=== PATIENT | male | born 1985 | race Caucasian/White ===

== ENCOUNTER 2018-03-04 02:06 | Emergency (ER) | payer OTHER ==
[2018-03-04 02:12] VITALS: BP 145/80
[2018-03-04] MEDS ORDERED: OXYCODONE-ACETAMINOPHEN 5-325 MG TABLET PO ONE (02:44)
--- NOTE | 2018-03-04 02:51 | RADIOLOGY REPORT (SQ) ---
Right thumb three view on 03/04/2018 at 2:31 AM CLINICAL INDICATION: Slammed hand in car door, pain COMPARISON: None FINDINGS: There are no fractures. Visualized joints are well aligned. No bony abnormality is noted. IMPRESSION: No acute bony abnormality.
--- NOTE | 2018-03-04 03:22 | ER Document Report ---
ED General - General Chief Complaint: Hand Injury Stated Complaint: THUMB INJURY Time Seen by Provider: 03/04/18 02:16 Information source: Patient Notes: Patient is a 32-year-old male who presents to the emergency department after smashing his finger in his truck door at 2150 tonight. He is visiting his family from [place]. His pain is 5 out of 5 and he feels it is a throbbing pain in his right first finger. He also does have a hematoma under his nail bed. Denies any medical history. TRAVEL OUTSIDE OF THE [place] IN LAST 30 DAYS: No Past Medical History - General Information source: Patient - Social History Smoking Status: Unknown if Ever Smoked Drug Abuse: None Family History: Reviewed & Not Pertinent Patient has suicidal ideation: No Patient has homicidal ideation: No Renal/ Medical History: Denies: Hx Peritoneal Dialysis Review of Systems - Review of Systems Notes: REVIEW OF SYSTEMS: CONSTITUTIONAL : Denies recent illness. Denies recent unintentional weight loss. Denies fever, chills, or sweats. EENT: Denies eye, ear, throat, or mouth pain, discharge, or symptoms. Denies nasal or sinus congestion. CARDIOVASCULAR: Denies chest pain. RESPIRATORY: Denies shortness of breath, cough, congestion, difficulty breathing , or wheezing. GASTROINTESTINAL: Denies nausea, vomiting, and diarrhea. Denies abdominal pain. Denies constipation. GENITOURINARY: Denies difficulty urinating, burning, blood in urine, urgency or frequency. MUSCULOSKELETAL: See HPI SKIN: Denies rash, itchiness, or lesions HEMATOLOGIC : Denies easy bruising or bleeding. LYMPHATIC: Denies swollen, painful, enlarged glands. NEUROLOGICAL: Denies no numbness or tingling denies weakness. Denies headache. Denies altered mental status. Denies alteration in speech. PSYCHIATRIC: Denies stress, anxiety, alteration in sleep patterns, or depression. All other systems reviewed and negative. Physical Exam - Vital signs Vitals: Temp Pulse Resp BP Pulse Ox 98.1 F 64 16 145/80 H 100 03/04/18 02:10 03/04/18 02:10 03/04/18 02:10 03/04/18 02:10 03/04/18 02:10 - Notes Notes: PHYSICAL EXAMINATION: GENERAL: Appears well, healthy, well-nourished, no acute distress. HEAD: Normocephalic, atraumatic. EYES: PERRL, conjunctiva normal, all extraocular movements intact, sclera nonicteric ENT: Moist mucous membranes. NECK: Supple, no noticeable swelling, redness, rash. Normal range of motion. LUNGS: Equal breath sounds bilaterally and clear to auscultation. No wheezes rales or rhonchi. CARDIOVASCULAR: S1-S2, regular rate, regular rhythm. Radial pulses 2+, normal. ABDOMEN: Normoactive bowel sounds. Soft, nontender, no guarding, no rebound tenderness, and no masses palpated. EXTREMITIES: Normal strength and range of motion, no pitting or edema. No cyanosis. NEUROLOGICAL: Moves all extremities upon command. Strength 5/5 in all extremities. PSYCH: Normal mood, normal affect. SKIN: Subungual hematoma to first right thumb. Warm, dry. No rash, lesions, ulcerations noted. Normal skin turgor. Course - Re-evaluation Re-evalutation: 03/04/18 03:00 Patient's x-rays do not show an acute fracture. He does have a subungual hematoma under his right thumb nailbed. This is the most likely cause of his pain. A nail trephination tool was used to drain the hematoma and the patient had immediate relief. The patient does not have pain at the anatomical snuffbox area. I do not suspect any tendon abnormalities based on patient's physical exam. - Vital Signs Vital signs: Temp Pulse Resp BP Pulse Ox 98.1 F 64 16 145/80 H 100 03/04/18 02:10 03/04/18 02:10 03/04/18 02:10 03/04/18 02:10 03/04/18 02:10 Procedures - Additional Procedures Nail trephination Additional Procedures: Other Discharge - Discharge Clinical Impression: Subungual contusion of fingernail Qualifiers: Encounter type: initial encounter Qualified Code(s): S60.10XA - Contusion of unspecified finger with damage to nail, initial encounter Condition: Stable Disposition: HOME, SELF-CARE Additional Instructions: You have been seen in the emergency department for trapped blood underneath your fingernail. The blood was drained here in the emergency department. You do not have a fracture of your finger. If you feel your pain is getting worse, develop a fever greater than 100.4 F, or have any symptoms that are worrisome to you, please return to the emergency department.
== END 2018-03-04 03:40 | disposition home or self-care (01) ==
LOC: EDBD 02:06 → ER 02:06
DX: S60.111A Contusion of right thumb with damage to nail, initial encounter (principal); W23.0XXA Caught, crushed, jammed, or pinched between moving objects, initial encounter
CPT/HCPCS: 99283